=== PATIENT | female | born 1935 | race Caucasian/White ===

== ENCOUNTER 2017-03-27 20:16 | Emergency (ER) | payer MEDICARE ==
--- NOTE | ~2017-03-27 | CT71 ---
[facility] A Service [facility] RADIOLOGY TEXT RESULTS PATIENT: MALINA REYES LOCATION: [facility] : 31 UNIT #: [id number] AGE: [address]: Joy Paulson MD SEX: F ORDER DR: [id number] [address] [address] [id number] MR#: [id number] Acc #: [id number] NAME: MALINA REYES : 1935 SEX: F STUDY DATE/TIME: 03/27/2017 22:33 UNIT: [facility] ROOM: STUDY DESCRIPTION: CT Head Wo Contrast Attending Physician: Joy Paulson M.D. Ordering Physician: Joy Paulson M.D. Primary Care Physician: No Primary Care Physician MEDICAL IMAGING REPORT This report is preliminary unless electronic signature is present EXAM CT scan of the head without contrast INDICATIONS Fall today with laceration and pain in the right side of head. COMPARISON 06/28/2012. TECHNIQUE Unenhanced images were through the brain. This CT exam was performed with one or more of the following radiation dose reduction techniques: Automatic exposure control, adjustment of mA and/or kV according to patient size, and iterative reconstruction. FINDINGS There is mild generalized atrophy. There are no masses or extra-axial fluid collections or hemorrhage. The skull is intact. IMPRESSION Mild generalized atrophy, otherwise, normal. Dictated by... Darrel Fowler M.D. THIS IS AN ELECTRONICALLY VERIFIED REPORT Darrel Fowler M.D. at 03/28/2017 1:22 PM FEL/aa TD: 03/28/2017 09:27 [facility] A Service [facility] RADIOLOGY TEXT RESULTS PATIENT: MALINA REYES LOCATION: [facility] : [birth year] UNIT #: [id number] AGE: [address]: Joy Paulson MD SEX: F ORDER DR: JOB #: [id number] MEDICAL IMAGING REPORT Page 1 of 1 COPY
[~2017-03-27 20:16] MED LIST: KEFLEX PO
== END 2017-03-27 23:20 | disposition home or self-care (01) ==
LOC: CED 20:16
DX: S00.03XA Contusion of scalp, initial encounter (principal); I10 Essential (primary) hypertension; Z23 Encounter for immunization; W01.198A Fall on same level from slipping, tripping and stumbling with subsequent striking against other object, initial encounter
CPT/HCPCS: 70450; 90471; 90715; 99283